=== PATIENT | female | born 1960 | race Caucasian/White ===

== ENCOUNTER 2018-07-17 21:11 | Emergency (ER) | payer MEDICAID ==
[~2018-07-17] VITALS: Ht 162.6 cm; Wt 82.0 kg
[2018-07-17 21:17] VITALS: BP 136/72
== END 2018-07-18 02:49 | disposition left against medical advice (07) ==
LOC: ER 21:11
DX: M79.675 Pain in left toe(s) (principal); Z53.21 Procedure and treatment not carried out due to patient leaving prior to being seen by health care provider